=== PATIENT | female | born 1960 | race Caucasian/White ===

== ENCOUNTER → 2016-12-07 | Day surgery (SDC) | payer OTHER ==
[~2016-12-07] VITALS: Ht 157.5 cm; Wt 80.3 kg
[~2016-12-07] MED LIST: <VITAMIN> A + D1 APP TOP; ALPRAZOLAM0.25 MG PO; ALPRAZOLAM0.5 MG PO; APIX5T PO; AUGMENTIN 500M500 MG PO; AUGMENTIN 875 M1 TAB PO; AUGMENTIN 875875 MG PO; AZO CRANBERRY450 MG PO; BACITRACIN; BACTRIM DS 8001 TAB PO; BISACODYL10 MG PR; BUSPAR5 MG PO; BUSPIRONE HCL15 MG PO; BUSPIRONE15 MG PO; CAL PO; CHONDROITIN COM1 CAP PO; CIPRO 500MG TA500 MG PO; CLEOCIN HCL150 MG PO; COLACE100 MG PO; DILAUDID4 M1 PO; DILAUDID8 MG PO; DOCUSATE SOD100 MG PO; DOS; ELIQUIS5 M1 PO; ELIQUIS5 MG PO; FISH OIL CONCEN1 SGL PO; FISH OIL1000 MG PO; FLAG500 PO; FLUCONAZOLE200 MG PO; GABAPENTIN TAB600 MG PO; GABAPENTIN600 MG PO; GENTAMICIN SU3 MG/ML OPH; GOLYTELY1 PDR PO; HYDROMORPHONE HC2 MG PO; HYDROMORPHONE HC4 MG PO; HYDROMORPHONE HY4 MG PO; LEVAQUIN750 MG PO; LEVOTHROID0.125 MG PO; LEVOTHYROXIN0.112 M1 PO; LEVOTHYROXIN0.112 MG PO; LINZESS145 MCG PO; LIORESAL 10MG T10 MG PO; MACRODANTIN 50M50 MG PO; MAG PO; METOCLOPRAMIDE5 MG PO; MIRALAX17 GM PO; MULTIVITAMIN1 TA1 PO; MULTIVITAMIN1 TAB PO; OFLOXACIN 10 ML10 M1 OS; OMEPRAZOLE40 MG PO; OXYBUTYNIN5 MG PO; PAROXETINE20 MG PO; PAXIL20 MG PO; POLYMYXIN B/TRI10 ML; POLYTRIM O200 GTT/BO OD; PREMPRO 0.625 M1 TAB PO; PREMPRO LOW DOS1 TAB PO; PREMPRO PO; PRENATAL VITAMI1 TAB PO; RENAL CAPS1 SGL PO; STOOL SOFTENER100 MG PO; TIZANIDINE HCL4 MG PO; TIZANIDINE4 MG PO; TYLENOL TAB 32325 MG PO; TYLENOL325 MG PO; VEGETABLE; VITAB121000 PO; ZOLPIDEM TARTRA10 MG PO; ZYRTEC ALLERGY10 MG PO; [UNRECOGNIZED DRUG - OTHER]; [UNRECOGNIZED DRUG - OTHER] PO; [UNRECOGNIZED DRUG - OTHER] PO
--- NOTE | 2016-12-07 20:17 | Operative Report ---
Operative/Inv Procedure Report Surgery Date: 12/07/16 Name of Procedure: suprapubic tube change: cystoscopy. excision of SPT site lesion. Pre-Operative Diagnosis: Skin lesion, nonfunctioning SP tube, hematuria. Post-Operative Diagnosis: Same Estimated Blood Loss: scant Surgeon/Field Crop Technical Officer: GISSELLE SALINAS MD Anesthesia: moderate sedation Drains: 2 [place] Bullard catheter used as an SP tube. Specimens: Suprapubic tube site lesion. Complications: None Operative/Procedure Note Note: The patient was taken to the operative room and placed on the OR table in supine position. Timeout was performed in order to confirm the patient's identity, procedure, anesthesia, antibiotics, as well as any other pertinent information. After adequate anesthesia, and antibiotics, the patient was then placed lithotomy stirrups draped and prepped in the usual surgical fashion. A 22 [place] cystoscope sheath with a 30 angle lens was inserted into the urethra and advanced into the bladder without difficulty. The bladder was noted to have edematous mucosa, both ureteral orifices in their orthotopic position, and the old SP tube in proper place. The bladder was then hydrodistended 2 with the irrigation fluid at 40 cm above the symphysis pubis. No evidence of tumor, increased petechiae, nor Hunner's ulceration was noted. Both ureteral orifices had clear reflux in their orthotopic position. No terminal bleed with drainage. The old suprapubic tube was then deflated, and then removed without difficulty. A skin lesion along the border of this suprapubic tube site was excised using Bugbee cautery, and sent to pathology. The cautery was then used once again to provide good hemostasis for the site. The old suprapubic tube was then deflated , and removed without difficulty. A new 20 [place] Bullard catheter was inserted into the suprapubic tube site and advanced into the bladder with direct visualization of the balloon in the bladder. These of sterile water was used to inflate the Bullard balloon. The cystoscope was then removed without difficulty. He tolerated the procedure well, and taken to recovery room in satisfactory condition. Discharge Disposition: Same Day Admissions CC: GISSELLE SALINAS MD
== END ==
LOC: STS 11-28 02:39
DX: R31.9 Hematuria, unspecified (principal); T83.098A Other mechanical complication of other urinary catheter, initial encounter; D23.5 Other benign neoplasm of skin of trunk; R39.14 Feeling of incomplete bladder emptying; E03.9 Hypothyroidism, unspecified; G82.50 Quadriplegia, unspecified; L89.90 Pressure ulcer of unspecified site, unspecified stage
CPT/HCPCS: 88304; J0131; J2250